=== PATIENT | male | born 1935 | race Caucasian/White ===

== ENCOUNTER 2017-02-24 11:25 | Emergency (ER) | payer MEDICARE, OTHER ==
[~2017-02-24] VITALS: Ht 172.7 cm; Wt 74.8 kg
[~2017-02-24 11:25] MED LIST: DAILY MULTIPLE1 TA6 PO; OMEGA 3 FISH O1 EACH PO; PERCOCET 325 MG1 TA2; PERCOCET 325 MG1 TA5 PO; SAW PALMETTO500 MG PO
[2017-02-24 15:12] LABS: BILIRUBIN NEGATIVE (NEGATIVE); BLOOD 2+ (NEGATIVE); CLARITY CLEAR (CLEAR); COLOR YELLOW (YELLOW); GLUCOSE NEGATIVE (NEGATIVE); KETONE NEGATIVE (NEGATIVE); LEUKO ESTERASE NEGATIVE (NEGATIVE); NITRITE NEGATIVE (NEGATIVE); PH 5.5 (5.0-9.0); UROBILINOGEN 0.2 E.U./dl (0.2-1.0)
[2017-02-24 15:30] LABS: BACTERIA 1+; RBC 31-40 rbc/hpf (0-2)
[2017-02-24 15:31] LABS: EPITHELIAL CELLS 0-2
[2017-02-24] MEDS ORDERED: FLOMAX0.4 MG PO (15:36)
== END 2017-02-24 16:00 | disposition home or self-care (01) ==
LOC: ED 11:25
PROVIDERS: Physician Assistant
DX: R33.9 Retention of urine, unspecified (principal); N40.0 Benign prostatic hyperplasia without lower urinary tract symptoms; Z79.899 Other long term (current) drug therapy; W18.09XA Striking against other object with subsequent fall, initial encounter; Y93.89 Activity, other specified; Y92.89 Other specified places as the place of occurrence of the external cause; Y99.8 Other external cause status

== ENCOUNTER → 2019-09-05 | Outpatient (CLI) | payer MEDICARE, OTHER ==
[~2019-09-05] MED LIST changes: +FLOMAX0.4 MG PO
== END | disposition home or self-care (01) ==
LOC: CARD 10:56
DX: Z01.810 Encounter for preprocedural cardiovascular examination (principal)